=== PATIENT | female | born 1950 | race Caucasian/White ===

== ENCOUNTER 2019-01-03 13:59 | Outpatient (CLI) | payer BC ==
[2019-01-03] MEDS ORDERED: Gadobenate Dimeglumine 529 MG/1 ML (20ML VIAL) ONE (16:28)
--- NOTE | 2019-01-04 07:57 | MRI ---
MRI OF THE BILATERAL BREASTS WITHOUT AND WITH CONTRAST: COMPARISON: None. HISTORY: Milky nipple discharge that occurred once in mid November in the right nipple. Nipple tenderness. COMPARISON: Mammogram 11/14/2018 from [facility]. TECHNIQUE: Multiplanar, multisequence MR images were obtained of the breast without and with IV contrast. FINDINGS: Scattered fibroglandular breast tissue is seen. There is a small amount of high T1 signal within the ducts posterior to both nipples consistent with proteinaceous debris within the ducts. Minimal back ground parenchymal enhancement is seen. No suspicious enhancement or suspicious mass is seen in either breast. No axillary adenopathy is see n. No internal mammary lymph nodes are identified. The visualized anterior liver and osseous structures are unremarkable. IMPRESSION: BIRADS category 2 - benign findings. Annual screening mammography is recommended. The patient shoul d have a hormonal workup for milky nipple discharge from the breasts. POS: [facility]
== END 2019-01-03 14:00 | disposition home or self-care (01) ==
LOC: BICMRI 13:59
PROVIDERS: ATTEND Surgery
DX: N64.52 Nipple discharge (principal)
CPT/HCPCS: A9577; C8908